=== PATIENT | male | born 1945 | race Caucasian/White ===

== ENCOUNTER → 2016-12-29 | Outpatient (CLI) | payer MEDICARE, BC ==
--- NOTE | 2016-12-29 17:37 | REP ---
HISTORY: Knee pain times one year. COMPARISON: None. There is extensive grade 1 and grade 3 signal change present in the posterior horn of the medial meniscus which is truncated and subluxed medially. The anterior horn of the medial meniscus is within normal limits. The anterior and posterior horns of the lateral meniscus are within normal limits showing mild grade 1 changes. The anterior and posterior cruciate ligaments are intact. The quadriceps and patellar tendons are intact. The medial collateral ligament is bowed medially due to the aforementioned meniscal changes, however, it is intact. There is T2 hypersignal seen between the medial meniscus and medial collateral ligament consistent with meniscal capsular separation. The lateral collateral ligament is intact. The medial and lateral patellar retinacula are intact. There is thinning and irregularity of all articular cartilages, particularly affecting the patellar articular cartilage and seen with subchondral multifocal T2 hypersignal particularly involving the medial patellar facet. There is a collection of fluid deep to the posterior superior fibers of the medial collateral ligament which is nonspecific. There is no justice joint effusion. There is a 4 cm sized Portillo's cyst. There is multifocal T2 hypersignal seen in the subchondral anterior lateral femoral condyle. IMPRESSION: 1. 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 2. There is fluid deep to the medial collateral ligament and medial meniscal capsular separation as described above. 3. 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 4. There is a Portillo's cyst as described above. 5. Other findings as described above. Signed by Dann Robertson DO 12/30/2016 10:12 A
== END ==
LOC: M RAD 13:35
PROVIDERS: ATTEND Orthopaedic Surgery
DX: S83.241A Other tear of medial meniscus, current injury, right knee, initial encounter (principal); M25.461 Effusion, right knee; M71.21 Synovial cyst of popliteal space [Baker], right knee; X58.XXXA Exposure to other specified factors, initial encounter; Y92.9 Unspecified place or not applicable; Y93.9 Activity, unspecified; Y99.9 Unspecified external cause status